=== PATIENT | male | born 1990 | race Caucasian/White ===

== ENCOUNTER 2016-04-13 | Outpatient (CLI) | END 2016-04-13 20:30 | disposition EMS.NT ==

== ENCOUNTER 2016-12-25 23:21 | Outpatient (CLI) | payer MEDICAID | END 2016-12-25 23:22 | disposition critical access hospital (66) | LOC: EMS 23:21 | PROVIDERS: ATTEND Surgery | DX: R46.89 Other symptoms and signs involving appearance and behavior (principal); Z72.89 Other problems related to lifestyle | CPT/HCPCS: A0425; A0429 ==

== ENCOUNTER 2016-12-25 23:34 | Emergency (ER) | payer MEDICAID ==
--- NOTE | 2016-12-25 23:50 | ED Physician Documentation ---
History of Present Illness - Stated complaint Stated Complaint: ETOH - Chief complaint Chief Complaint: MHE - Additonal information Additional information: hx from pt 26 y/o male BIBA and police for intoxication and AMS apparently he has been drinking, resisted police, was taken down, was uncooperative but breathalyzer was about 290, was sent to ER in 4 pt restraints , arrives unresponsive police state he was standing when they arrived but nobody knows what happened prior to that EMS did not see any pills etc but pt was outside with the police not at his house etc Review of Systems Unable to obtain: AMS PD PAST MEDICAL HISTORY - Past Surgical History Past Surgical History: No - Present Medications Home Medications: Ambulatory Orders Medication Instructions Recorded Confirmed HYDROcod/ACETAM 5/325 [[place] 5/325] 1 - 2 ea PO Q6H PRN #15 tablet 03/12/15 - Allergies Allergies/Adverse Reactions: Allergies Allergy/AdvReac Type Severity Reaction Status Date / Time No Known Drug Allergies Allergy Verified 12/25/16 23:59 - Social History Does the pt smoke?: Yes Smoking Status: Current every day smoker Does the pt drink ETOH?: Yes Does the pt have substance abuse?: No - Immunizations Immunizations are current?: Yes PD ED PE NORMAL - Vitals Vital signs reviewed: Yes - General General: No: Alert and oriented X 3 (initially unresponsive, then awoke and was mildly confused and slow to respond) - HEENT HEENT: PERRL (both markedly dilated). No: Atraumatic (dirt on face abrasion to nose) - Neck Neck: No bony TTP (but cant clear) - Cardiac Cardiac: RRR - Respiratory Respiratory: No respiratory distress, Clear bilaterally - Abdomen Abdomen: Soft, Non tender - Derm Derm: Normal color, Other (no track nichole) - Extremities Extremities: No deformity - Neuro Neuro: No: Alert and oriented X 3 (initially unrsponsive then awakened but confused and slow to answer ) Results - Vitals Vitals: Vital Signs - 24 hr 12/25/16 12/26/16 12/26/16 23:42 01:50 04:47 Temperature 37.3 C Heart Rate 105 H 75 83 Respiratory 16 14 20 Rate Blood Pressure 119/57 L 100/56 L 102/51 L O2 Saturation 96 95 96 12/26/16 06:02 Temperature Heart Rate 81 Respiratory 14 Rate Blood Pressure 104/51 L O2 Saturation 95 Oxygen O2 Source Room air - Labs Labs: Laboratory Tests 12/25/16 23:58 Sodium 140 Potassium 3.5 Chloride 103 Carbon Dioxide 22 Anion Gap 15.0 H BUN 7 Creatinine 0.9 Estimated GFR (MDRD) 103 Glucose 101 H Calcium 8.6 Total Bilirubin 1.0 AST 80 H ALT 133 H Alkaline Phosphatase 110 Total Protein 8.3 H Albumin 4.7 Globulin 3.6 Albumin/Globulin Ratio 1.3 Lipase 25 Salicylates < 6.0 Acetaminophen < 10 L Ethyl Alcohol 344.8 - Rads (name of study) [facility] Radiology: See rad report (no acute) [facility] Radiology: See rad report (old but no acute inuries) PD MEDICAL DECISION MAKING - ED course ED course: CT neg BA much higher than breathalyzer indicated which likely accounts for pt symptoms he awoke and was more responsive and cooperative was able to come out of restraints will dc when ambulatory and has a ride pt slept most of the night, awoke and was polite and cooperative and had 2 L of juice and a few sandwiches and was ready to go Departure - Departure Disposition: 01 Home, Self Care Clinical Impression: Alcoholic intoxication Qualifiers: Complication of substance-induced condition: with unspecified complication Qualified Code(s): F10.929 - Alcohol use, unspecified with intoxication, unspecified Condition: Good Instructions: ED Alcohol Intoxication Comments: Your alcohol was more than 4 times legal tonight Please consider enrolling in a program to help you cut back on your alcohol use We have provided you with information about local programs to help you. Rest and drink plenty of non alcoholic fluids today
[2016-12-26 00:23] LABS: ACETAMINOPHEN < 10 ug/mL (10-30); ALBUMIN/GLOBULIN RATIO 1.3 (1.0-2.2); BUN - BLOOD UREA NITROGEN 7 mg/dL (6-20); CALCIUM 8.6 mg/dL (8.5-10.3); CARBON DIOXIDE - CO2 22 mmol/L (21-32); CHLORIDE 103 mmol/L (101-111); CREATININE 0.9 mg/dL (0.6-1.2); GFR - MDRD 103 (>89); GLUCOSE 101 mg/dL (70-100); LIPASE 25 U/L (22-51); POTASSIUM 3.5 mmol/L (3.5-5.0); SALICYLATE < 6.0 mg/dL; SODIUM 140 mmol/L (135-145); TOTAL PROTEIN 8.3 g/dL (6.7-8.2)
--- NOTE | 2016-12-26 00:36 | CT Preliminary Report ---
Exam: CT Head W/O IMPRESSION: No acute or focal intracranial abnormality. [facility] SITE ID: [id number]
--- NOTE | 2016-12-26 00:39 | CT Preliminary Report ---
Exam: CT Cervical Spine W/O IMPRESSION: Limbus vertebrae at C5 and C6 consistent with old injuries. No evidence of recent fractur e. [facility] SITE ID: [id number]
--- NOTE | 2016-12-26 00:39 | CT Report ---
EXAM: CT HEAD EXAM DATE: 12/26/2016 12:26 AM. CLINICAL HISTORY: Altered mental status. Dilated pupils. COMPARISON: None. TECHNIQUE: Multiaxial CT images were obtained from the foramen magnum to the vertex. IV contrast: Non e. Reformats: Coronal. In accordance with CT protocol optimization, one or more of the following dose reduction techniques w ere utilized for this exam: automated exposure control, adjustment of mA and/or KV based on patient s ize, or use of iterative reconstructive technique. FINDINGS: Parenchyma: No intraparenchymal hemorrhage. No evidence of mass, midline shift, or CT findings of inf arction. Foster-white differentiation is distinct. Extraaxial Spaces: Normal for age. No subdural or epidural collections identified. Ventricles: Normal in size and position. Sinuses: Imaged paranasal sinuses, orbits, and mastoids show no significant abnormality. Bones: No evidence of fracture or calvarial defect. Other: None. IMPRESSION: No acute or focal intracranial abnormality. [facility] Referring Provider Line: [phone] SITE ID: [id number]
--- NOTE | 2016-12-26 00:42 | CT Report ---
EXAM: CT CERVICAL SPINE WITHOUT CONTRAST DATE: 12/26/2016 12:26 AM HISTORY: Altered mental status. Unknown if injured, evaluate for fracture in the cervical spine.. COMPARISONS: None. TECHNIQUE: Thin-section axial images were acquired of the cervical spine without contrast. Post-proce ssing: Coronal and sagittal reformats. Other: None. In accordance with CT protocol optimization, one or more of the following dose reduction techniques w ere utilized for this exam: automated exposure control, adjustment of mA and/or KV based on patient s ize, or use of iterative reconstructive technique. FINDINGS: Alignment: Normal. No scoliosis or spondylolisthesis. Bones: No acute fracture or bone lesion. Limbus vertebrae at C5 and C6 consistent with old injuries. Interspace Levels/Facets: C1-C2: Unremarkable. C2-C3: Unremarkable. C3-C4: Unremarkable. C4-C5: Unremarkable. C5-C6: Unremarkable. C6-C7: Unremarkable. C7-T1: Unremarkable. Musculature: Normal. No fatty atrophy. Other: The paravertebral and prevertebral soft tissues are normal. The lung apices are clear. IMPRESSION: Limbus vertebrae at C5 and C6 consistent with old injuries. No evidence of recent fractur e. [facility] Referring Provider Line: [phone] SITE ID: [id number]
[2016-12-26 08:36] VITALS: BP 117/56
== END 2016-12-26 08:15 | disposition home or self-care (01) ==
LOC: EDUNIT# → ED 23:34
DX: F10.129 Alcohol abuse with intoxication, unspecified (principal); R74.8 Abnormal levels of other serum enzymes; F17.200 Nicotine dependence, unspecified, uncomplicated
CPT/HCPCS: 36415; 70450; 72125; 80053; 80307; 80320; 80329; 83690; 99284; 99285

== ENCOUNTER 2017-08-28 01:32 | Emergency (ER) | payer OTHER, MEDICAID ==
[2017-08-28 01:39] VITALS: BP 133/82
--- NOTE | 2017-08-28 01:54 | ED Physician Documentation ---
History of Present Illness - Stated complaint Stated Complaint: MEDICAL CLEARANCE - Chief complaint Chief Complaint: General - History obtained from History obtained from: Patient, Police - Additonal information Additional information: brought in by police. shortly after being told he was under arrest, patient then struck his head against the ground. this happened in police presence and there was no LOC or AMS noted with this. patient also said to police "I might as well , then" (per my discussion with the police chief deputy in ED at bedside) after being told he was under arrest Review of Systems Cardiac: reports: Reviewed and negative Respiratory: reports: Reviewed and negative Musculoskeletal: reports: Reviewed and negative Neurologic: reports: Head injury. denies: Altered mental status, Unresponsive, Headache, LOC PD PAST MEDICAL HISTORY - Past Medical History Past Medical History: No - Past Surgical History Past Surgical History: No - Present Medications Home Medications: Ambulatory Orders Medication Instructions Recorded Confirmed HYDROcod/ACETAM 5/325 [[place] 5/325] 1 - 2 ea PO Q6H PRN #15 tablet 03/12/15 - Allergies Allergies/Adverse Reactions: Allergies Allergy/AdvReac Type Severity Reaction Status Date / Time No Known Drug Allergies Allergy Verified 08/28/17 01:38 - Social History Does the pt smoke?: Yes Smoking Status: Current every day smoker Does the pt drink ETOH?: Yes Does the pt have substance abuse?: No - Immunizations Immunizations are current?: Yes PD ED PE NORMAL - Vitals Vital signs reviewed: Yes - General General: No acute distress, Well developed/nourished, Other (awake, alert. answers quickly, oriented to person and place. says year is 2015, month is May) - HEENT HEENT: PERRL, EOMI PD ED PE EXPANDED - HEENT HEENT: PERRL, EOMI, Other (nasal bridge tenderness without crepitus or bruising ; there is a distractable component to tenderness (markedly less tenderness to palpation when distracted)) HEENT Visual: 1 - abrasion (trace abrasion without swelling or tenderness) Results - Vitals Vitals: Vital Signs - 24 hr 08/28/17 01:33 Temperature 36.2 C L Heart Rate 82 Respiratory 15 Rate Blood Pressure 133/82 H O2 Saturation 96 Oxygen O2 Source Room air PD MEDICAL DECISION MAKING - ED course Complexity details: reviewed old records (T+R from this ED December 2016 for similar presentation. ), re-evaluated patient, considered differential, d/w patient ED course: medically cleared for confinement. The description of the head injury (banged head against the ground in presence of police with no LOC or subsequent change in mental status), combined with exam findings (trace forehead abrasion without tenderness or swelling) do not suggest significant injury or need for emergent testing such as CT. He offers incorrect answers to month and year, but he otherwise converses clearly and answers correctly. He also is able to converse with police details of a restraining order he has against him. c/o nasal pain and tenderness on exam although no other exam findings to suggest acute nasal fracture. he has documented previous nasal fracture (2014). he does not make suicidal statements in ED, and the report that he told police he "might as well " (per police) after being told he was under arrest do not suggest true suicidality that would necessitate emergent psychiatric evaluation. Upon being told he was cleared for confinement, he became agitated and spoke with police in a clear, articulate fashion that again suggests against AMS or significant head injury Departure - Departure Disposition: 01 Home, Self Care Clinical Impression: Alcoholic intoxication Qualifiers: Complication of substance-induced condition: uncomplicated Qualified Code(s): F10.920 - Alcohol use, unspecified with intoxication, uncomplicated Condition: Good Instructions: ED Alcohol Intoxication, ED Contusion Nasal Vs Fx No X Ray Follow-Up: [facility] [Provider Group] [facility] [Provider Group] Discharge Date/Time: 08/28/17 02:13
== END 2017-08-28 02:13 | disposition home or self-care (01) ==
LOC: EDUNIT# → ED 01:32
DX: S00.81XA Abrasion of other part of head, initial encounter (principal); X83.8XXA Intentional self-harm by other specified means, initial encounter; F10.920 Alcohol use, unspecified with intoxication, uncomplicated; F17.200 Nicotine dependence, unspecified, uncomplicated
CPT/HCPCS: 99282; 99283